=== PATIENT | female | born 1955 | race Caucasian/White ===

== ENCOUNTER 2016-08-29 12:13 | Emergency (ER) | payer BC ==
[2016-08-29 12:45] VITALS: O2SAT 99
--- NOTE | 2016-08-29 12:47 | ED.PDOC ---
History of Present Illness - General Chief Complaint: Upper Extremity Injury Stated Complaint: pain right upper extremity and right knee Time Seen by Provider: 08/29/16 12:44 Source: patient - History of Present Illness Initial Comments: She stated that she went to pickup her mail from her mailbox at home then a passing neighbor on her car honk at her then turned around wave while walking then tripped on a flower pot then fell on her right side denies head/neck pain was able to get up by herself but with so much pain.No loc no blurry vision no back pain. Occurred: just prior to arrival Injuries/Pain Location: upper extremity - right shoulder;right knee Reason for Fall: tripped Loss of Consciousness: no loss of consciousness Improving Factors: immobilization Worsening Factors: movement Associated Symptoms (Fall): denies symptoms Allergies/Adverse Reactions: Allergies Tetanus Toxoid Adverse Reaction (Verified 08/29/16 12:21) Home Medications: Ambulatory Orders Zolpidem Tartrate [Ambien] 12.5 mg PO BEDTIME 07/16/14 Omeprazole [Prilosec Cap] 40 mg PO DAILY 10/22/14 Acetaminophen [Tylenol] 1 - 2 tbls PO PRN 08/22/15 Tramadol HCl 50 mg PO Q6HRS PRN #30 tab 08/29/16 Review of Systems - Review of Systems Constitutional: States: no symptoms reported EENTM: States: no symptoms reported Respiratory: States: no symptoms reported Cardiology: States: no symptoms reported Gastrointestinal/Abdominal: States: no symptoms reported Genitourinary: States: no symptoms reported Musculoskeletal: States: see HPI Skin: States: no symptoms reported Neurological: States: no symptoms reported Endocrine: States: no symptoms reported Past Medical History (General) - Patient Medical History Hx Seizures: No Hx Stroke: No Hx Asthma: No Hx of COPD: No Hx Cardiac Disorders: No Hx Congestive Heart Failure: No Hx Pacemaker: No Hx Hypertension: No Hx Diabetes: No Hx MRSA: No Surgical History: other - right knee,cts ,feet,fundoplication - Social History Hx Alcohol Use: No Hx Substance Use: No Hx Physical Abuse: No Hx Emotional Abuse: No Physical Exam - Physical Exam General Appearance: Alert, No apparent distress Head Injury: no evidence of injury Eye Exam: bilateral normal ENT Exam: hearing grossly normal, no evidence of ENT injury, no dental injury Peripheral Pulses: radial,right: 2+, radial,left: 2+ Cardiovascular/Respiratory: regular rate, rhythm, no M/R/G, normal peripheral pulses, no JVD, normal breath sounds, no respiratory distress Gastrointestinal/Abdominal: normal bowel sounds, non tender, soft, no organomegaly, no pulsatile mass Back Exam: normal inspection, no CVA tenderness, no vertebral tenderness Extremity Exam: pelvis stable, other - right shoulder-rom painful on rotation extension flexion abduction right knee rom slightly painful no instability scars from surgery Neurologic: no motor/sensory deficits, alert, oriented x 3 Skin Exam: normal color, warm/dry - Ken Coma Score Ken Total: 15 Departure - Departure Clinical Impression: Fall at home Qualifiers: Encounter type: initial encounter Qualifier Code: (W19.XXXA) Unspecified fall, initial encounter Rotator cuff (capsule) sprain Qualifiers: Encounter type: initial encounter Laterality: right Qualifier Code: (S43.421A) Sprain of right rotator cuff capsule, initial encounter Time of Disposition: 14:08 Disposition: Discharge to Home or Self Care Condition: Good Instructions: DI for Shoulder Sprain Prescriptions: Tramadol HCl 50 mg PO Q6HRS PRN #30 tab PRN Reason: Pain -- Mild Home Medications: Ambulatory Orders Zolpidem Tartrate [Ambien] 12.5 mg PO BEDTIME 07/16/14 Omeprazole [Prilosec Cap] 40 mg PO DAILY 10/22/14 Acetaminophen [Tylenol] 1 - 2 tbls PO PRN 08/22/15 Tramadol HCl 50 mg PO Q6HRS PRN #30 tab 08/29/16
--- NOTE | 2016-08-29 13:38 | RAD ---
PROCEDURE: Shoulder,Right 2 or More Views Clinical History: fall, unable to lift arm, shoulder pain Indication: Same as above Comparison: None . Technique: 2.0 views of the right shoulder were done. Findings: There is no visualization of acute fractures or dislocations involving the bones of the right shoulder joint. There is no evidence of periosteal reactions involving the bones of the shoulder joint. The adjacent acromioclavicular joint shows no significant degenerative change. The acromiohumeral distance is well-maintained . There is no evidence of rotator cuff calcific tendinitis. The visualized adjacent ribs do not show any evidence of acute bony trauma. Limited evaluation of the adjacent clavicle, scapula and the acromioclavicular joint does not show any evidence of acute bony trauma. The visualized lung mallory are radiographically unremarkable. The adjacent soft tissues are radiographically unremarkable. There is no visualization of any radiopaque foreign bodies in the soft tissues. Impression: Negative for acute bony trauma involving the right shoulder joint . Place of interpretation: [id number]. Electronically signed by: Cuba Mcbride MD 08/29/2016 1:37 PM HAND POLISHER
[2016-08-29 14:30] VITALS: BP 137/71; TEMP 98
--- NOTE | 2016-09-07 00:19 | RAD ---
PROCEDURE: Shoulder,Right 2 or More Views Clinical History: fall, unable to lift arm, shoulder pain Indication: Same as above Comparison: None . Technique: 2.0 views of the right shoulder were done. Findings: There is no visualization of acute fractures or dislocations involving the bones of the right shoulder joint. There is no evidence of periosteal reactions involving the bones of the shoulder joint. The adjacent acromioclavicular joint shows no significant degenerative change. The acromiohumeral distance is well-maintained . There is no evidence of rotator cuff calcific tendinitis. The visualized adjacent ribs do not show any evidence of acute bony trauma. Limited evaluation of the adjacent clavicle, scapula and the acromioclavicular joint does not show any evidence of acute bony trauma. The visualized lung mallory are radiographically unremarkable. The adjacent soft tissues are radiographically unremarkable. There is no visualization of any radiopaque foreign bodies in the soft tissues. Impression: Negative for acute bony trauma involving the right shoulder joint . Place of interpretation: [id number]. Electronically signed by: Cuba Mcbride MD 08/29/2016 1:37 PM [employer]
== END 2016-08-29 14:25 | disposition home or self-care (01) ==
LOC: ER 12:13
DX: S43.421A Sprain of right rotator cuff capsule, initial encounter (principal); Z88.7 Allergy status to serum and vaccine; W18.09XA Striking against other object with subsequent fall, initial encounter; Y92.007 Garden or yard of unspecified non-institutional (private) residence as the place of occurrence of the external cause

== ENCOUNTER → 2017-02-10 | Outpatient (CLI) | payer BC ==
--- NOTE | 2017-02-12 09:23 | MAM ---
EXAM DESCRIPTION: 3D Screening BILATERAL CLINICAL HISTORY: 61 yearsFemaleSCREENING. No complaints. No family history. Postmenopausal. No HRT. COMPARISON: Digital 2-D bilateral screening study 02/06/2015.. No prior reports available. TECHNIQUE: Bilateral CC and MLO projection full-field images, 3-D tomosynthesis digital mammographic technique. Also bilateral synthesized CC/ MLO full-field images. CAD not utilized. FINDINGS: The breast parenchymal density pattern is: Scattered areas of fibroglandular density. No skin thickening or nipple retraction bilateral axillary lymph nodes. Bilateral vascular calcifications. Bilateral solitary microcalcifications. No focal, stellate mass or density, focal asymmetry , and no suspicious microcalcifications bilaterally. Stable mammograms compared to prior study, taking into account differences in mammographic technique IMPRESSION: BI-RADS CATEGORY: 2 - BENIGN FINDINGS. FOLLOW UP: Routine digital bilateral screening, one year interval from February 2017. Written communication explaining the findings and follow-up, will be mailed to the patient and referring health care provider. According to the [employer], yearly mammograms are recommended starting at age 40 and continuing as long as a woman is in good health. Any breast change noted on a breast self-exam should be reported promptly to the patient's healthcare provider. Breast MRI is recommended for women with an approximately 20-25% or greater lifetime risk of breast cancer, including women with a strong family history of breast or ovarian cancer and women who have been treated for Hodgkin's disease. A negative mammographic report should not delay tissue diagnosis in patients with significant clinical history or physical findings. Extremely dense breast tissue limits the sensitivity of digital mammography. Electronically signed by: Toni Lee MD 02/12/2017 9:21 AM CDT Workstation: [id number]
== END ==
LOC: MAMMO 14:23
PROVIDERS: ATTEND Obstetrics & Gynecology
DX: Z12.31 Encounter for screening mammogram for malignant neoplasm of breast (principal)
CPT/HCPCS: G0202; G0279

== ENCOUNTER → 2018-04-07 | Outpatient (CLI) | payer BC | LOC: GMATM 17:37 | PROVIDERS: ATTEND Nurse Practitioner Family | DX: R30.0 Dysuria (principal) ==

== ENCOUNTER → 2018-10-26 | Outpatient (CLI) | payer BC | LOC: GMAE 11:01 | PROVIDERS: ATTEND Family Medicine | DX: Z00.01 Encounter for general adult medical examination with abnormal findings (principal) ==

== ENCOUNTER 2019-02-01 05:38 | Day surgery (SDC) | payer BC ==
[2019-02-01] MEDS ORDERED: PROPOFOL 200 MG/20 ML VIAL IV ONE (07:00)
[2019-02-01] MEDS ORDERED: LIDOCAINE 1% 10 ML VIAL INJ ONE (07:00)
[2019-02-01] MEDS ORDERED: LACTATED RINGERS 1,000 ML ONE (07:20)
[2019-02-01] MEDS ORDERED: LACTATED RINGERS 1,000 ML IVS ONE (11:35)
--- NOTE | 2019-02-01 13:18 | OP ---
DATE OF PROCEDURE: 02/01/19 PREPROCEDURE DIAGNOSIS: 1. Colorectal cancer screening. POSTPROCEDURE DIAGNOSIS: 1. Colonic polyps. 2. Internal hemorrhoids. 3. Diverticulosis. PROCEDURE: 1. Colonoscopy. SURGEON: Hesham Horton MD COMPLICATIONS: No immediate complications. SEDATION: The patient was sedated via IV propofol by the Anesthesia Department. CONSENT: Prior to the procedure, risks, benefits and alternatives to the therapy were discussed with the patient. The risks included bleeding, infection, perforation and . The patient agreed to the procedure and signed a consent. PREPROCEDURE ANESTHESIA ASSESSMENT: Mallampati class type 2, ASA grade assessment type 2. Throughout the procedure, the patient's vital signs were closely monitored. PROCEDURE: The patient was placed in the left lateral decubitus position and a rectal examination was performed. The rectal examination was within normal limits. The Olympus colonoscope was passed in the anus, rectum, traversing the colon to the level of the cecum as identified by the appendiceal orifice. The scope was retracted and the mucosa was visualized. The entirety of the exam was performed under direct visualization. Preparation quality was good. The withdrawal time was greater than 6 minutes. The patient tolerated the procedure well. FINDINGS: 1. Diverticulosis was found in the sigmoid colon. 2. Two colonic polyps were found in the cecum. The largest measured 13 mm and was sessile. Hot snare polypectomy was performed with no bleeding during or at the end of the procedure. The second polyp measured 8 mm and this was removed with cold snare and completely retrieved. No bleeding during or at the end of the procedure. 3. Large, non-bleeding internal hemorrhoids were found in retroflexion. 4. A small 3 mm pedunculated polyp was found in the ascending colon. This was removed with a cold snare. RECOMMENDATION: 1. Return the patient home. 2. Resume previous diet favoring high-fiber foods. 3. Followup pathology results. 3. Repeat colonoscopy no later than 3 years. 4. Return to referring physicians office as previously scheduled. 5. Return to my office p.r.n. 6. Findings were discussed with the patient and family members. #[id number] MTDD
[2019-02-01 14:45] VITALS: BP 140/66; TEMP 97.5; O2SAT 95
== END 2019-02-01 13:20 | disposition home or self-care (01) ==
LOC: AMB 05:38
PROVIDERS: ATTEND Internal Medicine Gastroenterology
DX: Z12.11 Encounter for screening for malignant neoplasm of colon (principal); D12.0 Benign neoplasm of cecum; K63.5 Polyp of colon; K57.30 Diverticulosis of large intestine without perforation or abscess without bleeding; K64.8 Other hemorrhoids; K21.9 Gastro-esophageal reflux disease without esophagitis; Z88.7 Allergy status to serum and vaccine; Z90.49 Acquired absence of other specified parts of digestive tract; Z79.899 Other long term (current) drug therapy
CPT/HCPCS: 00812; 45385; J3490; J7120

== ENCOUNTER → 2019-05-31 | Outpatient (CLI) | payer BC ==
--- NOTE | 2019-06-02 17:35 | MAM ---
EXAM DESCRIPTION: 3D Screening BILATERAL : Digital Mammography. CLINICAL HISTORY: 64 years Female ANNUAL SCREENING . No complaints. No personal or family history of breast cancer. Menarche age unknown. First childbirth age 19. Postmenopausal age 47. No HRT.. Lifetime risk of developing breast cancer (Tyrer-Cuzick model)(%): 5.8. COMPARISON: Bilateral screening digital breast tomosynthesis 16 February 2018.. 02/10/2017 TECHNIQUE: Bilateral CC and MLO projection full-field images, digital tomosynthesis mammographic technique. Bilateral digital 2-D full-field MLO images. CAD not available for tomosynthesis or 2-D images. FINDINGS: The breast parenchymal density pattern is: Scattered areas of fibroglandular density. No skin thickening or nipple retraction. Bilateral mole markers. Bilateral axillary lymph nodes. No new focal, stellate mass or density, focal asymmetry , and no suspicious microcalcifications bilaterally. Stable mammograms compared to prior study. IMPRESSION: Benign exam. BIRAD CATEGORY: 2 BENIGN FINDINGS. RECOMMENDATIONS: FOLLOW UP: Routine digital bilateral mammographic screening, one year interval from May 2019. Written communication explaining the IMPRESSION and follow-up, will be mailed to the patient and referring health care provider. According to the [employer], yearly mammograms are recommended starting at age 40 and continuing as long as a woman is in good health. Any breast change noted on a breast self-exam should be reported promptly to the patient's healthcare provider. Breast MRI is recommended for women with an approximately 20-25% or greater lifetime risk of breast cancer, including women with a strong family history of breast or ovarian cancer and women who have been treated for Hodgkin's disease. A negative mammographic report should not delay tissue diagnosis in patients with significant clinical history or physical findings. Extremely dense breast tissue limits the sensitivity of digital mammography. Electronically signed by: Toni Lee MD 06/02/2019 5:34 PM CELL PLASTERER
== END ==
LOC: MAMMO 09:30
PROVIDERS: ATTEND Obstetrics & Gynecology
DX: Z12.31 Encounter for screening mammogram for malignant neoplasm of breast (principal)

== ENCOUNTER → 2019-10-31 | Outpatient (CLI) | payer BC | LOC: GMAE 11:15 | PROVIDERS: ATTEND Family Medicine | DX: Z00.00 Encounter for general adult medical examination without abnormal findings (principal) ==

== ENCOUNTER → 2020-05-27 | Outpatient (CLI) | payer BC | LOC: GMAE 14:58 | PROVIDERS: ATTEND Family Medicine | DX: N30.01 Acute cystitis with hematuria (principal); R10.31 Right lower quadrant pain ==

== ENCOUNTER → 2020-06-10 | Outpatient (CLI) | payer BC ==
--- NOTE | 2020-06-11 16:24 | MAM ---
EXAM DESCRIPTION: 3D Screening BILATERAL : Digital Mammography. CLINICAL HISTORY: 65 years Female ANNUAL SCREENING . No complaints. No family history breast cancer. Menarche age 13. Childbirth age 20. menopause age unknown. No HRT. Lifetime risk of developing breast cancer (Tyrer-Cuzick model)(%): 5.1. COMPARISON: Bilateral screening digital breast tomosynthesis May 2019 and February 2018. TECHNIQUE: Bilateral CC and MLO projection full-field images, digital tomosynthesis mammographic technique. Bilateral digital 2-D full-field MLO images. CAD available for 2-D images. FINDINGS: The breast parenchymal density pattern is: Scattered areas of fibroglandular density. Axillary nodes. Skin mole markers. Minimal nodularity of the fibroglandular tissues bilaterally. No skin thickening or nipple retraction. No new focal, stellate mass or density, focal asymmetry , and no suspicious microcalcifications bilaterally. Stable mammograms compared to prior study. IMPRESSION: Benign exam. BIRAD CATEGORY: 2 BENIGN FINDINGS. RECOMMENDATIONS: FOLLOW UP: Routine digital bilateral mammographic screening, one year interval from June 2020. Written communication explaining the IMPRESSION and follow-up, will be mailed to the patient and referring health care provider. According to the [employer], yearly mammograms are recommended starting at age 40 and continuing as long as a woman is in good health. Any breast change noted on a breast self-exam should be reported promptly to the patient's healthcare provider. Breast MRI is recommended for women with an approximately 20-25% or greater lifetime risk of breast cancer, including women with a strong family history of breast or ovarian cancer and women who have been treated for Hodgkin's disease. A negative mammographic report should not delay tissue diagnosis in patients with significant clinical history or physical findings. Extremely dense breast tissue limits the sensitivity of digital mammography. Electronically signed by: Toni Lee MD 06/11/2020 4:22 PM MOTION PICTURE PHOTOGRAPHER
== END ==
LOC: MAMMO 07:54
PROVIDERS: ATTEND Obstetrics & Gynecology
DX: Z12.31 Encounter for screening mammogram for malignant neoplasm of breast (principal)